=== PATIENT | male | born 1990 | race Caucasian/White ===

== ENCOUNTER 2017-08-28 16:24 | Emergency (ER) | payer OTHER, MEDICAID ==
[~2017-08-28] VITALS: Ht 180.3 cm; Wt 76.2 kg
[2017-08-28 17:00] VITALS: BP 130/87
[2017-08-28] MEDS ORDERED: ALBU0.0912 IH (17:05)
--- NOTE | 2017-08-28 17:05 | NUR ---
PATIENT TO LOBBY, NO AVAIL. BED AT THIS TIME. NO DISTRESS
--- NOTE | 2017-08-28 19:00 | NUR ---
ASSUMED CARE OF PT AT THIS TIME. C/O RIGHT EYE REDNESS AN SWELLING. NO DRAINAGE. AAOX4 WITH EVEN AND STEADY GAIT; PATIENT STATES PAIN OF 0/10; VSS; PATIENT POSITIONED FOR COMFORT; ER MD MADE AWARE OF PT STATUS. WILL CONTINUE TO MONITOR.
[2017-08-28 19:30] VITALS: BP 130/87
--- NOTE | 2017-08-28 19:30 | NUR ---
Patient discharged with v/s stable. Written and verbal after care instructions given and explained. Patient alert, oriented and verbalized understanding of instructions. Ambulatory with steady gait. All questions addressed prior to discharge. ID band removed. Patient advised to follow up with PMD. Rx of ERYTHROMYCIN given. Patient educated on indication of medication including possible reaction and side effects. Opportunity to ask questions provided and answered.
== END 2017-08-28 19:30 | disposition home or self-care (01) ==
LOC: MED 16:24
DX: H00.021 Hordeolum internum right upper eyelid (principal); F14.10 Cocaine abuse, uncomplicated; J45.909 Unspecified asthma, uncomplicated; Z91.010 Allergy to peanuts
CPT/HCPCS: 99283